=== PATIENT | male | born 1965 | race African-American/Black ===

== ENCOUNTER 2017-06-26 10:05 | Emergency (ER) | payer OTHER ==
[~2017-06-26] VITALS: Ht 188 cm; Wt 88.0 kg
[2017-06-26 10:13] VITALS: BP 179/132
== END 2017-06-26 11:47 | disposition home or self-care (01) ==
LOC: ER 10:55
DX: R11.0 Nausea (principal); I10 Essential (primary) hypertension
CPT/HCPCS: 99281

== ENCOUNTER 2020-08-25 08:19 | Emergency (ER) | payer OTHER ==
[~2020-08-25] VITALS: Ht 190.5 cm; Wt 86.0 kg
[2020-08-25] MEDS ORDERED: IBUPROFEN 600MG TABLET PO ONE (08:45)
[2020-08-25] MEDS ORDERED: IBUP-2029 MT (09:13)
[2020-08-25 09:30] VITALS: BP 150/78
== END 2020-08-25 09:30 | disposition home or self-care (01) ==
LOC: EDBD 08:19 → ER 08:19
DX: S43.491A Other sprain of right shoulder joint, initial encounter (principal); I10 Essential (primary) hypertension; M25.511 Pain in right shoulder; Z98.890 Other specified postprocedural states; Z79.899 Other long term (current) drug therapy; V49.49XA Driver injured in collision with other motor vehicles in traffic accident, initial encounter; Y93.89 Activity, other specified; Y92.89 Other specified places as the place of occurrence of the external cause; Y99.8 Other external cause status
CPT/HCPCS: 29105; 73030; 99283; A4565